=== PATIENT | male | born 1980 | race Caucasian/White ===

== ENCOUNTER → 2024-02-09 16:40 | Outpatient (CLI) | payer OTHER, SELFPAY ==
--- NOTE | 2024-02-09 | DI.MRI.S_ITS ---
PROCEDURE: MR ANKLE LT WO CON INDICATIONS: pain and swelling TECHNIQUE: Noncontrast sagittal T1 spin echo and T2 fast spin echo with fat saturation, axial proton density fast spin echo and T2 fast spin echo with fat saturation, coronal T1 spin echo and T2 fast spin echo with fat saturation through the ankle/hindfoot. COMPARISON: None. FINDINGS: Image quality: Excellent. Bones and joints: Soft tissue edema and swelling surrounding distal lower leg extending to hindfoot and midfoot is seen. No bone marrow contusions or fractures. No hindfoot coalitions. No osteochondral injuries of the talar dome. Small plantar and dorsal calcaneal enthesophytes are seen. Small amount of tibiotalar joint effusion, no loose bodies. Medial structures: The posterior tibialis tendon is mildly thickened with fluid distending tendon sheath at the level of mid to distal talus and talonavicular joint. The flexor digitorum longus, and flexor hallucis longus tendons are intact. The posterior tibial neurovascular bundle appears normal within the tarsal tunnel, without extrinsic mass effect. The deltoid ligament and spring ligament are intact. Lateral structures: The anterior talofibular, calcaneofibular, and posterior talofibular ligaments appear intact. More superiorly, the anterior and posterior tibiofibular ligaments appear intact, as is the intermalleolar ligament. The tibiofibular syndesmosis is normal in width at 2 mm or less. The peroneus longus and brevis tendons are mildly thickened at the level of mid to distal calcaneus and cuboid with small amount of fluid distending tendon sheath. The sinus tarsi demonstrates normal fatty signal, without edema, fibrosis, or cyst formation. Visualized sinus tarsi components (cervical ligament, interosseous talocalcaneal ligament, roots of the inferior extensor retinaculum) appear normal. Anterior structures: The tibialis anterior, extensor hallucis longus, and extensor digitorum longus tendons appear intact. The dorsal talonavicular ligament appears intact. Posterior and plantar structures: Achilles tendon is intact. Mildly thickened medial band of plantar fascia is seen near its plantar calcaneal insertion. No abductor digiti quinti muscle atrophy to suggest Wright neuropathy. IMPRESSION: 1. Mild ankle soft tissue swelling and edema. No marrow edema. No fracture or dislocation. No osteochondral injuries of talar dome. Small joint effusion, no loose bodies. Plantar calcaneal enthesophyte. 2. Low-grade tenosynovitis involving posterior tibialis tendon at the level of mid to distal talus and talonavicular joint. 3. Very mild talar synovitis involving peroneus tendons at the level of mid to distal calcaneus and cuboid. 4. Medial and lateral ankle ligaments are intact. 5. Colles'tendon is intact. 6. Thickened medial band of plantar fascia at its calcaneal insertion suggestive of low-grade plantar fasciitis. Dictated by: Noe Wooten M.D. on 02/10/2024 at 9:10 Approved by: Noe Wooten M.D. on 02/10/2024 at 9:18
== END ==
PROVIDERS: Referring Provider Podiatrist; Visit Provider Podiatrist
DX: M25.572 Pain in left ankle and joints of left foot (principal); M65.872 Other synovitis and tenosynovitis, left ankle and foot; M25.472 Effusion, left ankle; M77.32 Calcaneal spur, left foot; M79.89 Other specified soft tissue disorders
CPT/HCPCS: 73721